=== PATIENT | female | born 1990 | race Caucasian/White ===

== ENCOUNTER 2016-10-14 11:53 | Emergency (ER) | payer OTHER ==
[~2016-10-14] VITALS: Wt 80.0 kg
[~2016-10-14 11:53] MED LIST: GUAI118L22 PO; SERT100T PO; SERT25TA PO
[2016-10-14] MEDS ORDERED: IBUP-1542 PO (13:13)
[2016-10-14] MEDS ORDERED: AZIT500T3 PO (13:15)
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
== END 2016-10-14 13:36 | disposition home or self-care (01) ==
LOC: FTE 11:53
DX: J02.9 Acute pharyngitis, unspecified (principal); I10 Essential (primary) hypertension
CPT/HCPCS: 99283

== ENCOUNTER 2016-12-30 19:02 | Emergency (ER) | payer OTHER ==
[~2016-12-30] VITALS: Ht 167.6 cm; Wt 86.5 kg
[~2016-12-30 19:02] MED LIST changes: +AZIT500T3 PO; +IBUP-1542 PO
[2016-12-30 19:14] VITALS: Ht 167.6 cm; Wt 86.5 kg
[2016-12-30] MEDS ORDERED: DICY10CA60 PO (19:19)
[2016-12-30] MEDS ORDERED: ONDA4TAB14 PO (19:19)
[2016-12-30] MEDS ORDERED: IBUP-1542 PO (19:19)
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
== END 2016-12-30 19:21 | disposition home or self-care (01) ==
LOC: FTE 19:02 → E/R 19:21
DX: A08.4 Viral intestinal infection, unspecified (principal)
CPT/HCPCS: 99284

== ENCOUNTER 2017-06-04 20:56 | Emergency (ER) | payer OTHER ==
[~2017-06-04] VITALS: Ht 165.1 cm; Wt 89.5 kg
[~2017-06-04 20:56] MED LIST changes: +DICY10CA60 PO; +ONDA4TAB14 PO
[2017-06-04 21:42] VITALS: Ht 165.1 cm; Wt 89.5 kg
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
--- NOTE | 2017-06-04 23:23 | RADRPT ---
PROCEDURE: Left knee x-ray CLINICAL INDICATION: Left knee pain. Reference marker directed towards the medial femoral condyle. TECHNIQUE: AP, lateral and oblique views of the left knee were obtained. COMPARISON: None FINDINGS: There is normal mineralization. No acute fracture or dislocation is seen. There are no significant degenerative changes. There is no joint effusion. There is no significant soft tissue swelling. IMPRESSION: Normal x-ray of the left knee. RPTAT: [facility] Physician Can Date Time Electronically viewed and signed by Physician Can on 06/04/2017 23:22 RS/
[2017-06-04] MEDS ORDERED: HYDR-906 PO (23:51)
[2017-06-04] MEDS ORDERED: IBUP-1542 PO (23:51)
[2017-06-05 00:21] VITALS: BP 131/88; PULSE 84; RESP 16
== END 2017-06-05 00:22 | disposition home or self-care (01) ==
LOC: FTE 20:56
DX: M25.562 Pain in left knee (principal)
CPT/HCPCS: 29505; 73562; Z7502

== ENCOUNTER 2017-09-12 21:22 | Emergency (ER) | payer OTHER ==
[~2017-09-12] VITALS: Ht 167.6 cm; Wt 88.2 kg
[~2017-09-12 21:22] MED LIST changes: +HYDR-906 PO
[2017-09-12 21:27] VITALS: Ht 167.6 cm; Wt 88.2 kg
== END 2017-09-13 00:42 | disposition left against medical advice (07) ==
LOC: FTE 21:22
DX: Z53.21 Procedure and treatment not carried out due to patient leaving prior to being seen by health care provider (principal)

== ENCOUNTER 2018-03-10 21:46 | Emergency (ER) | END 2018-03-11 02:35 | disposition home or self-care (01) ==

== ENCOUNTER 2018-06-07 07:59 | Emergency (ER) | END 2018-06-07 10:24 | disposition home or self-care (01) ==

== ENCOUNTER 2018-06-23 07:24 | Emergency (ER) | END 2018-06-23 11:43 | disposition home or self-care (01) ==

== ENCOUNTER 2018-06-23 07:47 | Outpatient (CLI) | END 2018-06-23 10:07 | disposition home or self-care (01) ==